=== PATIENT | female | born 1960 | race African-American/Black ===

== ENCOUNTER 2017-12-31 17:00 | Emergency (ER) | payer OTHER ==
[~2017-12-31] VITALS: Ht 157.5 cm; Wt 61.7 kg
[~2017-12-31 17:00] MED LIST: ALTACE10 MG PO; AMBIEN 5 MG TABL5 M1 PO; AMBIEN5 MG PO; AMLODIPINE BESY10 MG PO; AMOXICILLIN250 MG PO; AMOXICILLIN500 M1 PO; ARTHRITIS PILL; BACTRIM DS TAB1 EACH PO; BENTYL 10 MG CA10 M1 PO; BENTYL 20 MG TA20 M1 PO; CARAFATE 11 GM/10 M1 PO; CARAFATE1 GM/10 ML PO; CELEXA20 MG PO; CORTISPORIN OTI10 ML OTIC; CYCLOBENZAPRINE5 MG PO; FLEXERIL PO; HYDROCODONE-CHLO5 ML PO; IBUPROFEN 600600 M1 PO; KLONOPIN1 MG PO; LIDODERM 5%1 PATC1; LOMOTIL TABLET1 EACH PO; MOBIC7.5 MG PO; MUSCLE RELAXER; NORCO 5-325 TA1 EACH PO; NORVASC10 MG PO; OXYCODONE HCL 55 MG PO; OXYCONTIN10 M1 PO; PEPCID20 MG PO; PEPCID40 MG PO; PERCOCET 7.5-31 EACH PO; PHENERGAN 25 MG25 M1 PO; PHENERGAN 25 MG25 MG PO; PHENERGAN50 MG RC; POTASSIUM20 PO; PREDNISONE50 MG PO; PRILOSEC 20 MG20 MG PO; PROMETHAZINE HC25 M1 PO; PROMS25 WY RECTAL; PROTONIX 20 MG20 M1 PO; REGLAN 10 MG TA10 MG PO; TRANSDERM-SCO1 PATCH TRANSDERM; ULTRAM 50MG TAB50 MG PO; VALIUM5 MG PO; ZOFRAN ODT4 M1 PO; ZOFRAN ODT4 MG PO; ZOFRAN4 MG PO; [UNRECOGNIZED DRUG - OTHER] PO; [UNRECOGNIZED DRUG - REMARK]; [UNRECOGNIZED DRUG - REMARK]; [UNRECOGNIZED DRUG - REMARK]
== END 2017-12-31 17:55 | disposition home or self-care (01) ==
LOC: ER 17:00
DX: S91.131A Puncture wound without foreign body of right great toe without damage to nail, initial encounter (principal); I10 Essential (primary) hypertension; E78.00 Pure hypercholesterolemia, unspecified; J45.909 Unspecified asthma, uncomplicated; K21.9 Gastro-esophageal reflux disease without esophagitis; M19.90 Unspecified osteoarthritis, unspecified site; Z88.5 Allergy status to narcotic agent; Z88.6 Allergy status to analgesic agent; W22.09XA Striking against other stationary object, initial encounter; Y93.89 Activity, other specified; Y92.89 Other specified places as the place of occurrence of the external cause; Y99.8 Other external cause status

== ENCOUNTER 2018-01-26 13:10 | Emergency (ER) | payer OTHER ==
[~2018-01-26] VITALS: Ht 157.5 cm; Wt 63.5 kg
[2018-01-26] MEDS ORDERED: TRAMADOL 50 MG50 MG PO (15:09)
[2018-01-26] MEDS ORDERED: LIDODERM1 EACH TOP (15:10)
== END 2018-01-26 15:26 | disposition home or self-care (01) ==
LOC: ER 13:10
DX: S39.012A Strain of muscle, fascia and tendon of lower back, initial encounter (principal); S16.1XXA Strain of muscle, fascia and tendon at neck level, initial encounter; M79.7 Fibromyalgia; I10 Essential (primary) hypertension; E78.00 Pure hypercholesterolemia, unspecified; J45.909 Unspecified asthma, uncomplicated; M19.90 Unspecified osteoarthritis, unspecified site; F41.9 Anxiety disorder, unspecified; F32.9 Major depressive disorder, single episode, unspecified; Z88.5 Allergy status to narcotic agent; Z88.6 Allergy status to analgesic agent; V89.2XXA Person injured in unspecified motor-vehicle accident, traffic, initial encounter; Y93.89 Activity, other specified; Y92.89 Other specified places as the place of occurrence of the external cause; Y99.8 Other external cause status

== ENCOUNTER 2018-05-02 13:57 | Emergency (ER) | payer OTHER ==
[~2018-05-02] VITALS: Ht 157.5 cm; Wt 63.5 kg
--- NOTE | ~2018-05-02 | EKG ---
[address] [employer] [place] [address] ELECTROCARDIOGRAM REPORT Name: JIMENA QUINTANA [facility] [id number] Admission: 05/02/18 Attend Phys: Discharge: Date of : 60 Report #: [id number] THIS REPORT FOR: //name// [facility] ED Test Date: 2018-05-02 Test Time: 16:02:52 Pat Name: JIMENA QUINTANA Department: Room: Gender: F [employer]: TSTORALEK : 1960 Requested By: Rito Valerio Order Number: [id number] MD: Measurements Intervals [place] Rate: 46 P: 65 IN: 162 QRS: -31 QRSD: 109 T: 0 QT: 544 QTc: 476 Interpretive Statements Sinus bradycardia Left axis deviation Baseline wander in lead(s) V3,V6 Compared to ECG 01/07/2016 20:58:04 Sinus rhythm no longer present Sinus arrhythmia no longer present [email or web address] By: 1602 1602 Epiphany EpiphanyMD /EPI
[~2018-05-02 13:57] MED LIST changes: +LIDODERM1 EACH TOP; +TRAMADOL 50 MG50 MG PO
[2018-05-02 14:50] LABS: ABSOLUTE NEUTROPHILS 6.2 thou/uL (1.4-8.2); BASOPHILS 0.4 % (0.0-2.0); EOSINOPHILS 0.1 % (0.0-3.0); HEMATOCRIT 43.7 % (37.0-47.0); HEMOGLOBIN 15.1 gm/dL (12.0-15.0); LYMPHOCYTES 16.9 % (24.0-44.0); MCH 29.8 pg (26.0-34.0); MCHC 34.4 g/dL (28.0-37.0); MCV 86.5 fL (80.0-100.0); MONOCYTES 2.8 % (1.0-8.0); PLATELET COUNT 301 thou/uL (150-400); POLYS 79.8 % (36.0-66.0); RBC 5.06 mil/uL (4.20-5.00); RDW 14.6 % (10.5-14.5); WBC 7.7 thou/uL (4.0-11.0)
[2018-05-02 14:51] LABS: CALCIUM 9.9 mg/dL (8.5-10.1); CREATININE 1.3 mg/dL (0.6-1.0); POTASSIUM 3.2 mmol/L (3.5-5.1)
[2018-05-02 14:59] LABS: ALBUMIN 4.3 g/dL (3.4-5.0); TOTAL BILIRUBIN 0.3 mg/dL (<0.1-1.0); TOTAL PROTEIN 9.1 g/dL (6.4-8.2)
[2018-05-02] MEDS ORDERED: REGLAN 10 MG TA10 MG PO (17:45)
== END 2018-05-02 18:04 ==
LOC: ER 13:57
PROVIDERS: Physician Assistant
DX: G43.A0 Cyclical vomiting, in migraine, not intractable (principal); E87.6 Hypokalemia; N17.9 Acute kidney failure, unspecified; I16.0 Hypertensive urgency; F12.99 Cannabis use, unspecified with unspecified cannabis-induced disorder; E78.00 Pure hypercholesterolemia, unspecified; J45.909 Unspecified asthma, uncomplicated; M06.9 Rheumatoid arthritis, unspecified; G89.29 Other chronic pain; F32.9 Major depressive disorder, single episode, unspecified; F41.9 Anxiety disorder, unspecified; Z88.6 Allergy status to analgesic agent; Z88.8 Allergy status to other drugs, medicaments and biological substances